=== PATIENT | female | born 1990 | race African-American/Black ===

== ENCOUNTER → 2019-04-06 | Outpatient (CLI) | payer BC ==
[2014-09-29 21:13] VITALS: BP 144/66
[~2019-04-06] MED LIST: LISI1TAB20 PO
--- NOTE | 2019-04-06 18:14 | RAD ---
Examination: CT of the abdomen pelvis without contrast HISTORY: History of right lower quadrant abdominal pain COMPARISON: 12/30/2009 TECHNIQUE: Axial CT images of the abdomen pelvis were performed without contrast. Coronal and sagittal reformats are performed Exposure: One or more of the following individualized dose reduction techniques were utilized for this examination: 1. Automated exposure control 2. Adjustment of the mA and/or kV according to patient size 3. Use of iterative reconstruction technique FINDINGS: Bibasilar lungs are clear. No evidence of free air identified in the abdomen. The evaluation of the solid organs is limited due to lack of IV contrast. The noncontrasted liver, spleen, adrenals grossly appears unremarkable. Gallbladder is mildly distended. The stomach is mildly distended. Food material identified in the stomach. The visualized pancreas grossly appears unremarkable. The small bowel is nondilated. The appendix is normal. Feces and gas noted in the colon. Cystic structure identified in the pelvis measuring up to 3.6 cm probably a right ovarian cyst or cystic lesion. Urinary bladder is mildly distended. No evidence of intrarenal collecting system calculi or hydronephrosis. No evidence of lytic bony destructive lesion. IMPRESSION: 1. Normal-appearing appendix. 2. 3.6 cm cystic structure identified in the right ovary could be a right ovarian cyst or cystic lesion. Follow-up ultrasound pelvis can be considered. Electronically signed by: Edgar Long MD (04/06/2019 6:11 PM) [id number]
== END | disposition home or self-care (01) ==
LOC: RAD 16:00
PROVIDERS: ATTEND Physician Assistant
DX: K82.8 Other specified diseases of gallbladder (principal)
CPT/HCPCS: 74176

== ENCOUNTER 2020-04-29 14:39 | Emergency (ER) | payer BC ==
[~2020-04-29] VITALS: Ht 170.2 cm; Wt 104.3 kg
[2020-04-29 14:53] VITALS: BP 159/98
--- NOTE | 2020-04-29 15:00 | PHYS DOC ---
Past History Past Medical History: Anxiety, Depression, Hypertension Past Surgical History: Tonsillectomy Smoking: Non-smoker Alcohol Use: Occasionally Drug Use: None Adult General Chief Complaint Chief Complaint: LOWER EXT PAIN HPI HPI Patient is a 29-year-old female presenting for posterior right leg pain. States she is currently in the middle of an outpatient work-up for potential DVT with her primary care physician. Her Wells criteria for DVT is less than 3; however, patient did have D-dimer drawn in outpatient setting and was reportedly elevated. Patient has outpatient ultrasound scheduled this upcoming week but was advised if pain and/or posterior right leg fullness increases over the weekend to come to our ER for evaluation. Patient denies any obvious increase in size of her right lower extremity but does report increased pain and is worried for potential DVT prompting her to come in for evaluation today. Denies fever, no shortness of breath or chest pain. Admits she does have significant family history of blood clots, states her mom has sarcoid and other relatives have suffered from pulmonary embolisms and DVTs. She is scheduled to see her primary care physician later this week, she does not believe she has had a full work-up to ensure she does not have an underlying hypercoagulable state Review of Systems Review of Systems Fourteen body systems of review of systems have been reviewed. See HPI for pertinent positives and negative responses, other pierce all other systems are negative, non-pertinent or non-contributory Allergies Allergies Allergies Coded Allergies Type Severity Reaction Last Updated Verified iodine Allergy Intermediate 02/09/14 No Physical Exam Physical Exam Constitutional: Well developed, well nourished, no acute distress, non-toxic appearance. HENT: Normocephalic, atraumatic, bilateral external ears normal, oropharynx moist, no oral exudates, nose normal. Eyes: PERRLA, EOMI, conjunctiva normal, no discharge. Neck: Normal range of motion, no tenderness, supple, no stridor. Cardiovascular: Heart rate regular, sinus rhythm, no murmurs rubs or gallops Lungs & Thorax: Bilateral breath sounds clear to auscultation Abdomen: Bowel sounds normal, soft, no tenderness, no masses, no pulsatile masses. Nonsurgical abdomen, no peritoneal signs Skin: Warm, dry, no erythema, no rash. Back: No tenderness, no CVA tenderness. Extremities: No cyanosis, no clubbing, ROM intact, no edema. Pulses in leg circumference in bilateral lower extremities symmetric and intact. Negative Homans' sign bilaterally. Patient does have palpable vein to posterior portion of right knee without any obvious right knee abnormalities, negative valgus and varus testing in addition to anterior and posterior Edy tests. Neurologic: Alert and oriented X 3, grossly normal motor & sensory function, no focal deficits noted. Psychologic: Affect normal, judgement normal, anxious mood Current Patient Data Vital Signs Vital Signs Date Time Temp Pulse Resp B/P (MAP) Pulse Ox O2 Delivery O2 Flow Rate FiO2 04/29/20 14:53 97.8 90 14 159/98 (118) 98 EKG EKG [] Radiology/Procedures Radiology/Procedures Right Lower Extremity Venous Doppler Ultrasound History: Reason: RLE pain, elevated d dimer, inc size vs contralateral leg / Spl. Instructions: / History: Comparison: None Procedure: Color flow, duplex, spectral analysis and 2D images are obtained with and without compression in the area of the common femoral vein, superficial femoral vein - femoral vein junction, main femoral vein (superficial femoral vein) and popliteal vein. Veins of the proximal calf are also imaged. Findings: There is normal duplex flow, color flow and compressibility of all visualized vein segments. No evidence of deep venous thrombus is present. Impression: No evidence of DVT. Electronically signed by: Peng Wells III, MD (04/29/2020 4:08 PM) [facility] Heart Score Risk Factors: Risk Factors: DM, Current or recent (<one month) smoker, HTN, HLP, family history of CAD, obesity. Risk Scores: Risk Factors: DM, Current or recent (<one month) smoker, HTN, HLP, family history of CAD, obesity. Course & Med Decision Making Course & Med Decision Making Pertinent Labs and Imaging studies reviewed. (See chart for details) Discussed negative ultrasonography of right lower extremity for DVT. At this point no further ER intervention and/or work-up indicated Patient has previously scheduled outpatient follow-up with PCP this upcoming week which I feel is appropriate. I advised her to bring up ER visit today which was significant for negative ultrasound. I also advised her to follow-up to ensure she was worked up in outpatient setting for any coagulopathies given her significant family medical history. Strict return precautions were discussed at length with good understanding by patient who is able to restate plan and concerning signs or symptoms that should prompt immediate medical attention. All questions and concerns addressed prior to ER departure Ron Disclaimer [place] Disclaimer This electronic medical record was generated, in whole or in part, using a voice recognition dictation system. Departure Departure: Impression: Primary Impression: Right leg pain Disposition: 01 DC HOME SELF CARE/HOMELESS Condition: STABLE Referrals: JAH CROFT (PCP) Additional Instructions: As discussed prior to ER departure, please ensure you keep your previously scheduled follow-up with primary care physician in outpatient setting this upcoming week Discuss ER visit today that was negative for DVT of your right lower extremity. Please discuss need to be worked up in outpatient setting for coagulopathies given your significant family medical history for blood clots If any concerning signs or symptoms present prior to outpatient follow-up please do not hesitate to come back for repeat examination It was a pleasure to take care of you and I wish you the very best going forward EMY LATIF DO Apr 29, 2020 15:00
--- NOTE | 2020-04-29 16:11 | RAD ---
Right Lower Extremity Venous Doppler Ultrasound History: Reason: RLE pain, elevated d dimer, inc size vs contralateral leg / Spl. Instructions: / History: Comparison: None Procedure: Color flow, duplex, spectral analysis and 2D images are obtained with and without compression in the area of the common femoral vein, superficial femoral vein - femoral vein junction, main femoral vein (superficial femoral vein) and popliteal vein. Veins of the proximal calf are also imaged. Findings: There is normal duplex flow, color flow and compressibility of all visualized vein segments. No evidence of deep venous thrombus is present. Impression: No evidence of DVT. Electronically signed by: Peng Wells III, MD (04/29/2020 4:08 PM) [facility]
== END 2020-04-29 17:04 | disposition home or self-care (01) ==
LOC: ER 14:39
DX: M79.604 Pain in right leg (principal); I10 Essential (primary) hypertension; Z86.718 Personal history of other venous thrombosis and embolism; Z88.8 Allergy status to other drugs, medicaments and biological substances
CPT/HCPCS: 93971; 99284